=== PATIENT | male | born 1935 | race Caucasian/White ===

== ENCOUNTER 2023-12-19 08:50 | Inpatient (IN) | payer MEDICARE, BC ==
[2023-12-19] MEDS ORDERED: Polyethylene Glycol 3350 Powder 17 GM Packet PO PRN (10:55)
[2023-12-19] MEDS ORDERED: Ondansetron 4 MG Tab.DIS PO PRN (10:55)
[2023-12-19] MEDS ORDERED: Ondansetron 4 MG/2 ML SDV IVPUSH PRN (10:55)
[2023-12-19] MEDS ORDERED: MENTHOL TP PRN (11:05)
[2023-12-19] MEDS ORDERED: METHYL SALICYLATE TP PRN (11:05)
[2023-12-19] MEDS ORDERED: [UNRECOGNIZED DRUG - OTHER] TP PRN (11:05)
[2023-12-19 11:29] LABS: BASOPHILS ABSOLUTE AUTO 0.03 10^3/uL (0.00-0.50); BASOPHILS PERCENT AUTO 0.3 % (0-1); EOSINOPHILS ABSOLUTE AUTO 0.25 10^3/uL (0.00-1.50); EOSINOPHILS PERCENT AUTO 2.7 % (0-6); HEMATOCRIT 37.2 % (42.0-52.0); HEMOGLOBIN 12.4 g/dL (14.0-18.0); IMMATURE GRAN ABSOLUTE AUTO 0.15 10^3/uL (0.00-0.49); IMMATURE GRAN PERCENT AUTO 1.6 % (0.0-4.9); LYMPHOCYTES ABSOLUTE AUTO 1.77 10^3/uL (0.60-5.00); MEAN CORPUSCULAR HEMOGLOBIN 33.4 pg (27.0-32.0); MEAN CORPUSCULAR HGB CONC 33.3 g/dL (32.0-36.0); MEAN CORPUSCULAR VOLUME 100.3 fL (83.0-97.0); MONOCYTES ABSOLUTE AUTO 0.59 10^3/uL (0.00-1.50); MONOCYTES PERCENT AUTO 6.3 % (0-10); NEUTROPHILS ABSOLUTE AUTO 6.55 x10^3/uL (1.80-8.00); NEUTROPHILS PERCENT AUTO 70.1 % (41-71); PLATELET COUNT,PLT 190 10^3/uL (150-400); RED BLOOD CELL COUNT 3.71 x10^6/uL (4.50-6.00); WHITE BLOOD CELL COUNT,WBC 9.3 10^3/uL (4.0-11.0)
[2023-12-19] MEDS: VANCOmycin 1 GM/200 ML 1 GM in Premix Bag 1 BAG IV SCH (12:15)
[2023-12-19] MEDS: Polyethylene Glycol 3350 Powder 17 GM Packet PO SCH (12:24)
[2023-12-19] MEDS: Aspirin 81 MG Tab.EC PO SCH (12:24)
[2023-12-19] MEDS: Lidocaine 4% 1 each Patch TOP SCH (12:25)
[2023-12-19] MEDS: Tamsulosin 0.4 MG Cap.ER PO SCH (12:25)
[2023-12-19] MEDS: Timolol Maleate 0.5% Ophth Soln 5 ML Bottle EYEBOTH SCH (12:27)
[2023-12-19 14:10] LABS: ALBUMIN 2.9 g/dL (3.4-5.0); BILIRUBIN TOTAL 0.6 mg/dL (0.0-1.0); CALCIUM 8.5 mg/dL (8.4-10.1); CREATININE 0.9 mg/dL (0.7-1.3); EST CRCL DRUG DOSING (CG) 58.58 mL/min; POTASSIUM,K 3.5 mEq/L (3.5-5.0); PROTEIN TOTAL,TP 6.1 g/dL (6.4-8.2)
[2023-12-19] MEDS: Magnesium Oxide 400 MG Tab PO SCH (19:59)
[2023-12-19] MEDS: Zinc Sulfate 220 MG Cap PO SCH (19:59)
[2023-12-19] MEDS: Melatonin 3 MG Tab PO SCH (19:59)
[2023-12-19] MEDS: Venlafaxine 37.5 MG Cap.ER PO SCH (20:00)
[2023-12-19] MEDS: Hydrocortisone 20 MG Tab PO ONE (20:00)
[2023-12-19] MEDS: Acetaminophen 325 MG Tab PO PRN (20:20)
[2023-12-20] MEDS: Ascorbic Acid 500 MG Tab PO SCH (08:47)
[2023-12-20] MEDS: Cholecalciferol (Vitamin D3) 25 MCG Tab PO SCH (08:47)
[2023-12-20] MEDS: Calcium Carbonate/Vitamin D3 1250 MG-5 MCG Tab PO SCH (08:47)
[2023-12-20] MEDS: Hydrocortisone 20 MG Tab PO ONE (12:21)
[2023-12-20] MEDS: Hydrocortisone 20 MG Tab PO SCH ×2 (14:46→20:19)
[2023-12-20] MEDS: VANCOmycin 1.5 GM/300 ML 1.5 GM in Premix Bag 1 BAG IV SCH (16:36)
[2023-12-21] MEDS: Hydrocortisone 20 MG Tab PO SCH ×2 (07:43→14:33)
[2023-12-21] MEDS: Fish Oil/Omega-3 Fatty Acids 1 Gm Cap PO SCH (07:44)
[2023-12-22] MEDS: Menthol/Zinc Oxide Ointment 113 GM Tube TOP PRN (00:10)
[2023-12-31 11:57] LABS: ALBUMIN 3.2 g/dL (3.4-5.0); BILIRUBIN TOTAL 0.4 mg/dL (0.0-1.0); CALCIUM 8.9 mg/dL (8.4-10.1); CREATININE 0.9 mg/dL (0.7-1.3); EST CRCL DRUG DOSING (CG) 57.45 mL/min; POTASSIUM,K 4.1 mEq/L (3.5-5.0); PROTEIN TOTAL,TP 6.3 g/dL (6.4-8.2)
[2024-01-01] MEDS: Docusate Sodium 100 MG Cap PO PRN (19:53)
[2024-01-02 09:47] VITALS: BP 149/89; PULSE 79
== END 2024-01-02 09:52 | DRG 947 ==
LOC: UNDOADMIN 08:50 → CC.MS 08:50
PROVIDERS: ADMIT Nurse Practitioner Family; ATTEND Nurse Practitioner Family
DX: R53.83 Other fatigue (principal); G93.41 Metabolic encephalopathy; E87.1 Hypo-osmolality and hyponatremia; E27.40 Unspecified adrenocortical insufficiency; R78.81 Bacteremia; B95.7 Other staphylococcus as the cause of diseases classified elsewhere; M54.50 Low back pain, unspecified; R53.1 Weakness; Z66 Do not resuscitate; N40.0 Benign prostatic hyperplasia without lower urinary tract symptoms; E11.9 Type 2 diabetes mellitus without complications; F32.A Depression, unspecified; M19.90 Unspecified osteoarthritis, unspecified site; G89.29 Other chronic pain; H91.90 Unspecified hearing loss, unspecified ear; G47.30 Sleep apnea, unspecified; Z88.0 Allergy status to penicillin; Z88.2 Allergy status to sulfonamides; Z79.82 Long term (current) use of aspirin; Z86.718 Personal history of other venous thrombosis and embolism; Z79.899 Other long term (current) drug therapy; Z90.49 Acquired absence of other specified parts of digestive tract; Z90.89 Acquired absence of other organs; Z96.659 Presence of unspecified artificial knee joint
CPT/HCPCS: 36415; 72131; 73700-LT; 80053; 80202; 85025; 97110-GP; 97162-GP; 97530-GP; A9270-GY; J1642; J3370; U0002